=== PATIENT | female | born 1995 | race American Indian/Alaskan Native ===

== ENCOUNTER 2017-10-09 10:41 | Outpatient (CLI) | payer BC ==
--- NOTE | 2017-10-09 13:41 | Cat Scan Report ---
FINAL REPORT EXAM: CT ABDOMEN PELVIS W CON HISTORY: RUQ PAIN TECHNIQUE: CT examination of the ABDOMEN after IV contrast CT examination of the PELVIS after IV contrast PRIORS: None. FINDINGS: Normal-appearing liver, gallbladder, adrenals, pancreas, and spleen. Intact normal caliber abdominal aorta and IVC. Normal-appearing kidneys. No renal calculus or hydronephrosis. The exam is limited from a paucity of anatomical intraperitoneal fat to separate adjacent organs and structures. The ureters are largely obscured by adjacent soft tissues. Visible portions appear normal on delayed images. Intestinal loops are also difficult to independently assess. No retroperitoneal adenopathy. No visible mesenteric mass. Normal-appearing stomach and duodenum. No small bowel distention in the abdomen and pelvis. Nonspecific trace cul-de-sac free fluid primarily on the right. Nonspecific 2.6 cm ring-enhancing lesion in the right adnexa may reflect hemorrhagic ovarian cyst. Left L5 spondylolysis. No spondylolisthesis. Normal-appearing urinary bladder, uterus, left adnexa, and rectum. No focal abnormality in sigmoid colon. No gross ascites or free air. Normal-appearing cecum, terminal ileum, and visible portion of the appendix. Prominent stool from cecum to rectum may reflect constipation. Slight prominence of colon caliber diffusely. IMPRESSION: Nonspecific rim enhancing lesion in right adnexa may be an ovarian hemorrhagic cyst Trace cul-de-sac free fluid may be reactive Prominent stool and caliber from cecum to rectum suggestive of constipation Left L5 spondylolysis. No spondylolisthesis
== END 2017-10-09 10:42 | disposition home or self-care (01) ==
LOC: CT 10:41
PROVIDERS: ATTEND Internal Medicine Gastroenterology
DX: R10.11 Right upper quadrant pain (principal); M47.896 Other spondylosis, lumbar region
CPT/HCPCS: 74177; Q9967